=== PATIENT | female | born 1965 | race Two or more races ===

== ENCOUNTER 2023-08-31 05:20 | Day surgery (SDC) | payer OTHER ==
[2023-08-31] MEDS ORDERED: POVIDONE-IODINE 118 ML BOTT TOP ONE ×2 (07:10→08:30)
[2023-08-31] MEDS ORDERED: IBU600 MG PO (08:17)
== END 2023-08-31 13:10 | disposition home or self-care (01) ==
LOC: CIR.AMB 05:20
PROVIDERS: ATTEND Obstetrics & Gynecology Gynecology
DX: N84.0 Polyp of corpus uteri (principal); N84.1 Polyp of cervix uteri